=== PATIENT | female | born 1985 | race American Indian/Alaskan Native ===

== ENCOUNTER 2016-09-01 11:37 | Emergency (ER) | payer OTHER ==
[2016-09-01 11:41] VITALS: BMI 26.5
--- NOTE | 2016-09-01 11:57 | PDOC ---
History of Present Illness - General History Source: Patient Exam Limitations: No Limitations - History of Present Illness Presenting Symptoms: Short of Breath, Vomiting Timing/Duration: reports: constant Severity/Quality: reports: moderate Location: reports: substernal, shoulder, other (LUE) Chest Pain Radiation: reports: arms (L ARM only) Activities at Onset: reports: sleep Prior Chest Pain/Cardiac Workup: reports: No prior chest pain, No prior cardiac workup Nitro Today/Relief: Yes: no nitro taken today Aspirin Received prior to arrival (Core Measure): Yes: no aspirin today Beta Claudia Contraindications (Core Measure): Yes: Not Prescribed Associated Symptoms: Yes: Nausea, Shortness of Breath, Vomiting <Lexi Owen - Last Filed: 09/01/16 16:34> <Mendy Etienne - Last Filed: 09/01/16 17:52> - General Chief Complaint: Chest Pain Stated Complaint: DIFFICULTY BREATHING/PAIN IN LEFT ARM Time Seen by Provider: 09/01/16 11:51 - History of Present Illness Initial Comments: 09/01/16 14:45 Patient is a 30 y.o. female at 31 weeks gestation who presents to our facility today c/o a 1 day h/o substernal chest, shoulder and UE pain. Patient states the pain is intermittent, "stabbing" and exacerbated by deep breathing or laying down. Patient also c/o of associated intermittent shortness of breath exacerbated by activity and relieved by rest. ROS is significant for 3 episodes of yellowish, non-bilious, non-bloody vomiting this morning. Patient denies any current abdominal pain, rectal bleeding, dysuria, hematuria or fever. (Lexi Owen) Past History - Past Medical History Asthma: No Cancer: No Cardiac Disorders: No Diabetes: No HTN: No Seizures: No Thyroid Disease: No Other medical history: denies - Psycho/Social/Smoking Cessation Hx Suicidal Ideation: No Smoking History: Never smoked Information on smoking cessation initiated: No Hx Alcohol Use: No Drug/Substance Use Hx: No Substance Use Type: None Hx Substance Use Treatment: No <Lexi Owen - Last Filed: 09/01/16 16:34> <Mendy Etienne - Last Filed: 09/01/16 17:52> - Past Medical History Allergies/Adverse Reactions: Allergies Allergy/AdvReac Type Severity Reaction Status Date / Time No Known Allergies Allergy Verified 09/01/16 11:41 Home Medications: Ambulatory Orders Vit No.130/Iron/FA [ Tablet] 1 each PO DAILY 04/28/15 Review of Systems - Review of Systems Respiratory: Yes: Shortness of Breath, SOB with Exertion Cardiac (ROS): Yes: Chest Pain ABD/GI: Yes: Nausea, Vomiting Musculoskeletal: Yes: Muscle Pain All Other Systems: Reviewed and Negative <Lexi Owen - Last Filed: 09/01/16 16:34> *Physical Exam - Physical Exam General Appearance: Yes: Nourished, Appropriately Dressed HEENT: positive: EOMI, NIALL Neck: positive: Tender, Trachea midline Respiratory/Chest: positive: Lungs Clear, Normal Breath Sounds Cardiovascular: positive: Regular Rhythm, S1, S2, Tachycardia Gastrointestinal/Abdominal: positive: Normal Bowel Sounds, Soft Musculoskeletal: positive: Other (Limited ROM of L arm 2/2 to pain) <Lexi Owen - Last Filed: 09/01/16 16:34> - Vital Signs Last Vital Signs Temp Pulse Resp BP Pulse Ox 98.2 F 89 18 100/63 100 09/01/16 16:29 09/01/16 16:29 09/01/16 16:29 09/01/16 16:29 09/01/16 16:29 Procedures - Bedside Ultrasound Bedside Ultrasound: Cardiac Other: focused TTE, bilat lower ext /ro proximal DVT, and transabd OB. see att not <Mendy Etienne - Last Filed: 09/01/16 17:52> ED Treatment Course - LABORATORY CBC & Chemistry Diagram: 09/01/16 12:00 09/01/16 12:00 <Lexi Owen - Last Filed: 09/01/16 16:34> - LABORATORY CBC & Chemistry Diagram: 09/01/16 12:00 09/01/16 12:00 <Mendy Etienne - Last Filed: 09/01/16 17:52> - ADDITIONAL ORDERS Additional order review: Laboratory Results 09/01/16 09/01/16 12:00 12:00 Sodium 137 Potassium 3.6 Chloride 103 Carbon Dioxide 24 Anion Gap 10 BUN 4 L D Creatinine 0.4 L Creat Clearance w eGFR > 60 Random Glucose 97 Calcium 9.3 Total Bilirubin 0.3 AST 25 ALT 18 Alkaline Phosphatase 152 H Creatine Kinase 65 Troponin I < 0.02 Total Protein 6.6 Albumin 2.6 L 09/01/16 12:00 RBC 3.90 MCV 79.0 L MCHC 31.9 L RDW 14.3 MPV 9.0 Neutrophils % 81.0 Lymphocytes % 14.1 D Monocytes % 4.4 Eosinophils % 0.2 D Basophils % 0.3 - Medications Given in the ED: ED Medications Discontinued Medications Generic Name Dose Route Start Last Admin Trade Name Tavon PRN Reason Stop Dose Admin Ondansetron HCl 4 mg 09/01/16 12:30 09/01/16 13:10 Zofran Injection IVPUSH 09/01/16 12:31 4 mg ONCE ONE Administration Sodium Chloride 1,000 ml 09/01/16 12:28 09/01/16 13:10 Normal Saline - IV 09/01/16 12:29 1,000 ml ONCE ONE Administration Medical Decision Making <Lexi Owen - Last Filed: 09/01/16 16:34> <Mendy Etienne - Last Filed: 09/01/16 17:52> - Medical Decision Making 09/01/16 14:55 Patient is a 30 y.o. female @ 31 weeks gestation who presents with 1 day h/ o chest pain, LUE pain and shortness of breath. Given patient's , immediate concern was for pulmonary embolism. Beside U/S of LUE showed compressibility of femoral and popliteal veins making DVT less likely. As patient continued to c/o c/o of dyspnea (SpO2 > 94% on RA) and EKG showed sinus tachycardia (HR 188 bpm) patient was counseled on risks and benefits of radiation exposure and patient consented for chest CTA. Patient's PCP, Dr. Yesenia Escoto was contacted, and Dr. Escoto's partner agreed with CTA. CTA was negative for PE and bedside U/S of chest showed no pericardial effusion making cardiomyopathy secondary to less likely. Troponin was (-) x1. During the course of admission patient's c/o dyspnea and R chest/ shoulder/UE pain resolved. Patient was discharged to L&D with instruction to return if she experienced chest pain or shortness of breath. (Lexi Owen) *DC/Admit/Observation/Transfer <Lexi Owen - Last Filed: 09/01/16 16:34> <Mendy Etienne - Last Filed: 09/01/16 17:52> Diagnosis at time of Disposition: Chest pain - Discharge Dispostion Disposition: HOME Condition at time of disposition: Improved - Patient Instructions Printed Discharge Instructions: DI for Atypical Chest Pain, DI for Shortness of Breath, DI for Chest Pain Additional Instructions: Please return to the ED should you experience shortness of breath or severe chest pain Print Language: LUX[place]
[2016-09-01 12:09] LABS: BASOPHIL 0.3 % (0-2.0); EOSINOPHIL 0.2 % (0-4.5); MCH 25.2 pg (25.7-33.7); MCHC 31.9 g/dl (32.0-36.0); PLATELET COUNT 171 K/MM3 (134-434); RDW 14.3 % (11.6-15.6); WHITE BLOOD COUNT 13.4 K/mm3 (4.0-10.0)
[2016-09-01] MEDS ORDERED: SODIUM CHLORIDE 0.9% 1000 ML INFUS.BAG IV ONE (12:28)
[2016-09-01] MEDS ORDERED: ONDANSETRON 4 MG/2 ML VIAL IVPUSH ONE (12:30)
[2016-09-01 12:38] LABS: ALBUMIN 2.6 g/dl (3.4-5.0); ALK PHOS 152 U/L (45-117); ANION GAP 10 (8-16); BILIRUBIN,TOTAL 0.3 mg/dL (0.2-1.0); CALCIUM 9.3 mg/dL (8.5-10.1); CO2 24 mmol/L (21-32); CREATININE 0.4 mg/dL (0.55-1.02); GLUCOSE,RANDOM 97 mg/dL (74-106); SGOT/AST 25 U/L (15-37); SGPT/ALT 18 U/L (12-78); TOT PROT 6.6 g/dl (6.4-8.2)
[2016-09-01 12:40] LABS: TROPONIN I < 0.02 ng/ml (0.00-0.05)
[2016-09-01] MEDS ORDERED: ONDANSETRON 4 MG/2 ML VIAL ONE (13:06)
--- NOTE | 2016-09-01 17:44 | PDOC ---
Attending Attestation - Resident Resident Name: Ivis Owenica - ED Attending Attestation I have performed the following: I have examined & evaluated the patient, The case was reviewed & discussed with the resident, I agree w/resident's findings & plan, Exceptions are as noted - HPI HPI: 09/01/16 17:36 30 yo F ( 2 miscarriages ) with h/o 31 weeks , here with c/o chest pain radiating to her arm. did feel was plueritic. also had n/v x 2 yesterday and this am. nonbloody. no h/o pe or dvt. no leg swelling . no recent travel. does feel sob. no f/c no cough. no other complaints. no loss of fluid or urinary symptoms. sob worse with lying flat. - Physicial Exam PE: 09/01/16 17:39 awake alert lungs clear. heart RRR no m/r/g. abd soft gravid nontender. ext wwp no edema no calf tenderness. 09/01/16 17:45 - Medical Decision Making 09/01/16 17:45 30 yo F with 31 week here with c/o sob and chest pain. differential: diagnosis cardiomyopathy, anemia, dehydration, pe, chf, pain of , plan bedside TTE, bilat dopplers lower extremity r/o dvt. evaluate ob ultrasound for well being. labs, ua , reassess. will d/w pt ob and pt regarding need for CT r/o pe bedside US TTE performed, indication sob suspect Pe: findings: no pericardial effusion. good contractility. no signs of RV strain or dilation. impression: normal TTE Focused ED ultrasound bilat lower extremities r/o DVT: finding: complete compression at common femoral down to superifical and deep femoral veins, no clot visualization. patent veins and complete compression from popliteal to anterior, posterior tibial veins and peroneal veins. normal augmentation impression : no proximal DVT of bilat lower ext, recommend repeat in 5 - 7 days. focused ED ultrasound transabdominal OB, FHR 164 bpm, movment noted. 09/01/16 17:51 ct angio negative for PE. pt sent to L &D for monitoring.
[2016-09-01 18:09] VITALS: BP 105/65; PULSE 93; TEMP 98
--- NOTE | 2016-09-04 13:59 | EKG ---
Test Reason : Blood Pressure : / mmHG Vent. Rate : 118 BPM Atrial Rate : 118 BPM P-R Int : 120 ms QRS Dur : 086 ms QT Int : 324 ms P-R-T Axes : 059 056 034 degrees QTc Int : 454 ms SINUS TACHYCARDIA OTHERWISE NORMAL ECG NO PREVIOUS ECGS AVAILABLE Confirmed by WAYNE PRESCOTT MD ([id number]) on 09/04/2016 1:58:31 PM Referred By: Confirmed By:WAYNE PRESCOTT MD
== END 2016-09-01 18:40 | disposition home or self-care (01) ==
LOC: JER 11:37
PROC: 3E033GC Introduction of Other Therapeutic Substance into Peripheral Vein, Percutaneous Approach (ICD-10-PCS; principal; 2016-09-01)
DX: O99.89 Other specified diseases and conditions complicating pregnancy, childbirth and the puerperium (principal); R07.89 Other chest pain; Z3A.31 31 weeks gestation of pregnancy
CPT/HCPCS: 36415; 71275-TC; 80053; 82550; 84484; 85025; 93005; 93010; 96374; 99285-25

== ENCOUNTER 2016-11-05 10:10 | Inpatient (IN) | payer OTHER ==
[~2016-11-05 10:10] MED LIST: BUTORPHANOL TARTRATE 1 MG/ML VIAL IVPB ONE; PROMETHAZINE HCL 25 MG/1 ML VIAL IVPB ONE
[2016-11-05 10:46] VITALS: BMI 28.5
[2016-11-05] MEDS ORDERED: TUBERCULIN PPD 5 TU/0.1ML SYRINGE (IN PATIENT USE ONLY) ID ONE (11:00)
[2016-11-05] MEDS ORDERED: BENZOCAINE 20% 57 GM BOTTLE TP PRN (11:27)
[2016-11-05] MEDS ORDERED: WITCH HAZEL 50% (TUCKS) 40 PAD/JAR PAD TP PRN (11:27)
[2016-11-05] MEDS ORDERED: METHYLERGONOVINE MALEATE 0.2 MG/1 ML AMP IM PRN (11:27)
[2016-11-05] MEDS ORDERED: BISACODYL 10 MG SUPP.RECT RC PRN (11:27)
[2016-11-05] MEDS ORDERED: BENZOCAINE 28 GM HEMORRHOIDAL OINTMENT TP PRN (11:27)
--- NOTE | 2016-11-05 11:27 | HP ---
Past Medical History - Primary Care Physician PCP:: Yesenia Ahumada - Admission Chief Complaint: SROm at 41 week History of Present Illness: 31 yo edc 10/29/16 ega 41 week admitted for srom in labor History Source: Patient - Past Medical History ...: 4 ...Para: 3 ...Term: 3 ...EDC by Janie: 10/29/16 - Past Surgical History Past Surgical History: Yes: None Hx Myomectomy: No Hx Transabdominal Cerclage: No - Smoking History Smoking history: Never smoked Have you smoked in the past 12 months: No - Alcohol/Substance Use Hx Alcohol Use: No History of Substance Use: reports: None - Social History Usual Living Arrangement: Yes: With Spouse History of Recent Travel: No Home Medications - Allergies Allergies/Adverse Reactions: Allergies Allergy/AdvReac Type Severity Reaction Status Date / Time No Known Allergies Allergy Verified 11/05/16 10:33 - Home Medications Home Medications: Ambulatory Orders RX: Vit No.130/Iron/FA [ Tablet] 1 each PO DAILY 04/28/15 Ferrous Sulfate [Feosol] 325 mg PO BID 11/05/16 Review of Systems - Review of Systems Constitutional: reports: No Symptoms Eyes: reports: No Symptoms HENT: reports: No Symptoms Neck: reports: No Symptoms Cardiovascular: reports: No Symptoms Respiratory: reports: No Symptoms Gastrointestinal: reports: Abdominal Pain Genitourinary: reports: No Symptoms Breasts: reports: No Symptoms Reported Musculoskeletal: reports: No Symptoms Integumentary: reports: No Symptoms Neurological: reports: No Symptoms Endocrine: reports: No Symptoms Hematology/Lymphatic: reports: No Symptoms Psychiatric: reports: No Symptoms Physical Exam - Maternity Vital Signs: Vital Signs Temperature 98.2 F 11/05/16 10:15 Pulse Rate 108 H 11/05/16 10:15 Respiratory Rate 20 11/05/16 10:15 Blood Pressure 122/79 11/05/16 10:15 O2 Sat by Pulse Oximetry (%) Constitutional: Yes: Well Nourished, No Distress Neck: Yes: WNL Cardiovascular: Yes: WNL Lungs: Clear to auscultation - Abdominal Exam/OB Number of Fetuses: Single Presentation: Vertex Contractions: No Monitor Mode: External Heart Rate Location: [facility] Category: I - Vaginal Exam/OB Dilatation (cm): 7 Effacement (%): 80 Amniotic Membrane Status: Ruptured Presentation: Vertex/Position Station: -1 - Physical Exam Musculoskeletal: Yes: WNL Extremities: Yes: WNL Edema: No Integumentary: Yes: WNL Hemorrhage Risk Assessment - Risk Factors Risk Score: 0 Risk Level: Low Risk Problem List - Problems (1) Spontaneous rupture of amniotic membranes Code(s): [id number] - Assessment/Plan iup at 41 weeks srom active labor Cat 1 Plan stadol
[2016-11-05] MEDS ORDERED: DEXTROSE 5%-LACTATED RINGERS 1,000 ML IV SCH (11:30)
[2016-11-05 11:44] LABS: BASOPHIL 0.3 % (0-2.0); EOSINOPHIL 0.2 % (0-4.5); MCHC 30.8 g/dl (32.0-36.0); MEAN PLT VOLUME 8.9 fl (7.5-11.1); NEUTROPHILS 84.6 % (42.8-82.8); PLATELET COUNT 176 K/MM3 (134-434); RDW 16.9 % (11.6-15.6); WHITE BLOOD COUNT 16.4 K/mm3 (4.0-10.0)
[2016-11-05 12:13] LABS: ANION GAP 12 (8-16); CALCIUM 8.5 mg/dL (8.5-10.1); CO2 21 mmol/L (21-32); CREATININE 0.5 mg/dL (0.55-1.02); GLUCOSE,RANDOM 109 mg/dL (74-106)
[2016-11-05 12:20] LABS: HIV 1 & 2 AB NEGATIVE; HIV 1 AGp24 NEGATIVE
[2016-11-05 12:22] LABS: INR 1.01 (0.82-1.09); PROTHROMBIN TIME (PATIENT) 11.1 SEC (9.98-11.88)
[2016-11-05 12:24] LABS: ACTIVATED PTT 26.7 SECONDS (26.9-34.4)
[2016-11-05] MEDS: D5W-LR W/ 20 UNITS OXYTOCIN 1,000 ML IV SCH (13:15)
[2016-11-05 14:17] LABS: ANISOCYTOSIS 2+; MACROCYTOSIS 1+; MICROCYTOSIS 1+
[2016-11-05] MEDS: IBUPROFEN 600 MG TABLET (FP) PO PRN ×2 (14:37→21:24)
[2016-11-05] MEDS: ACETAMINOPHEN 325 MG TABLET (FP) PO PRN (21:25)
--- NOTE | 2016-11-06 00:17 | PN ---
Delivery - Delivery Vaginal Delivery: No Problems Type of Anesthesia: None Episiotomy/Laceration: None EBL (cc): 400 (Nuchal COrd X2) Delivery, Single - Stages of Labor Date 1st Stage Initiatied: 11/05/16 Time 1st Stage Initiated: 09:00 Date 2nd Stage Initiated: 11/05/16 Time 2nd Stage Initiated: 12:45 Date of Delivery: 11/05/16 Time of Delivery: 13:12 Time Placenta Delivered: 13:15 - Condition of Brine Tank Separator Operator/Hatch Supervisor Present: No Infant Gender: Female Weight: 6 lb 10 oz Position: Right, OA Total Hours ROM (Hrs/Mins): 9/15 - 1 Minute Total Score: 9 5 Minutes Total Score: 9 - [place] Feeding Plan Initial Plan: Exclusive throughout hospitalization
--- NOTE | 2016-11-06 00:23 | DS ---
Physical Exam-PROFESSOR OF ENGLISH Vital Signs: Vital Signs Temperature 98.9 F 11/05/16 22:00 Pulse Rate 105 H 11/05/16 22:00 Respiratory Rate 18 11/05/16 22:00 Blood Pressure 118/64 11/05/16 22:00 O2 Sat by Pulse Oximetry (%) 99 11/05/16 14:45 Constitutional: Yes: Well Nourished, No Distress Cardiovascular: Yes: WNL, Regular Rate and Rhythm Respiratory: Yes: WNL, Regular, CTA Bilaterally Gastrointestinal: Yes: WNL, Normal Bowel Sounds ....Post : Yes: Uterus firm, Uterus non-tender Breast(s): Yes: WNL Musculoskeletal: Yes: WNL Extremities: Yes: WNL Neurological: Yes: WNL, Alert, Oriented Labs: CBC, BMP 11/05/16 11:25 11/05/16 11:25 Delivery - Delivery Vaginal Delivery: No Problems Type of Anesthesia: None Episiotomy/Laceration: None EBL (cc): 400 (Nuchal COrd X2) Delivery, Single - Stages of Labor Date 1st Stage Initiatied: 11/05/16 Time 1st Stage Initiated: 09:00 Date 2nd Stage Initiated: 11/05/16 Time 2nd Stage Initiated: 12:45 Date of Delivery: 11/05/16 Time of Delivery: 13:12 Time Placenta Delivered: 13:15 - Condition of Wind Operations Supervisor/Account Clerk Present: No Infant Gender: Female Weight: 6 lb 10 oz Position: Right, OA Total Hours ROM (Hrs/Mins): 9/15 - 1 Minute Total Score: 9 5 Minutes Total Score: 9 - Feeding Plan Initial Plan: Exclusive throughout hospitalization Discharge Summary Reason For Visit: LABOR Procedures: Principal: Normal vaginal delivery Condition: Good - Instructions Referrals: Yesenia Ahumada MD [Staff Physician] - Disposition: HOME - Home Medications Comprehensive Discharge Medication List: Ambulatory Orders Vit No.130/Iron/FA [ Tablet] 1 each PO DAILY 04/28/15 Ferrous Sulfate [Feosol] 325 mg PO BID 11/05/16 Ibuprofen [Motrin -] 600 mg PO QID PRN #28 tablet 11/06/16
--- NOTE | 2016-11-06 08:09 | PN ---
Post Note - Post Date of Delivery: 11/05/16 Vital Signs: Vital Signs - 24 hr 11/05/16 11/05/16 11/05/16 10:15 11:00 12:00 Temperature 98.2 F Pulse Rate 108 H 103 H 86 Respiratory 20 18 18 Rate Blood Pressure 122/79 119/75 122/75 O2 Sat by Pulse Oximetry (%) 11/05/16 11/05/16 11/05/16 13:45 14:00 14:15 Temperature 98.0 F Pulse Rate 92 H 86 84 Respiratory 18 18 18 Rate Blood Pressure 129/78 130/77 134/77 O2 Sat by Pulse 99 99 98 Oximetry (%) 11/05/16 11/05/16 11/05/16 14:30 14:45 15:08 Temperature 97.6 F Pulse Rate 88 Respiratory 18 Rate Blood Pressure 125/71 O2 Sat by Pulse 97 99 Oximetry (%) 11/05/16 11/05/16 11/06/16 17:57 22:00 02:00 Temperature 97.6 F 98.9 F 97.8 F Pulse Rate 110 H 105 H 90 Respiratory 18 18 18 Rate Blood Pressure 119/68 118/64 99/53 O2 Sat by Pulse Oximetry (%) 11/06/16 06:00 Temperature 98.1 F Pulse Rate 87 Respiratory 20 Rate Blood Pressure 119/62 O2 Sat by Pulse Oximetry (%) Labs: Laboratory Results - last 24 hr 11/05/16 11/05/16 11/05/16 11:20 11:20 11:25 WBC 16.4 H RBC 4.22 Hgb 8.8 L D Hct 28.7 L MCV 68.0 L MCH 21.0 L MCHC 30.8 L RDW 16.9 H D Plt Count 176 MPV 8.9 Neutrophils % 84.6 H Lymphocytes % 10.3 D Monocytes % 4.6 Eosinophils % 0.2 Basophils % 0.3 Anisocytosis 2+ Microcytosis 1+ Macrocytosis 1+ INR PTT (Actin FS) Sodium Potassium Chloride Carbon Dioxide Anion Gap BUN Creatinine Random Glucose Calcium RPR Titer HIV 1&2 Antibody Screen HIV P24 Antigen Blood Type O POSITIVE Cancelled Antibody Screen Negative 11/05/16 11/05/16 11/05/16 11:25 11:25 11:25 WBC RBC Hgb Hct MCV MCH MCHC RDW Plt Count MPV Neutrophils % Lymphocytes % Monocytes % Eosinophils % Basophils % Anisocytosis Microcytosis Macrocytosis INR 1.01 PTT (Actin FS) 26.7 L Sodium 136 Potassium 3.3 L Chloride 103 Carbon Dioxide 21 Anion Gap 12 BUN 8 D Creatinine 0.5 L D Random Glucose 109 H Calcium 8.5 RPR Titer Nonreactive HIV 1&2 Antibody Screen HIV P24 Antigen Blood Type Antibody Screen 11/05/16 11:25 WBC RBC Hgb Hct MCV MCH MCHC RDW Plt Count MPV Neutrophils % Lymphocytes % Monocytes % Eosinophils % Basophils % Anisocytosis Microcytosis Macrocytosis INR PTT (Actin FS) Sodium Potassium Chloride Carbon Dioxide Anion Gap BUN Creatinine Random Glucose Calcium RPR Titer HIV 1&2 Antibody Screen Negative HIV P24 Antigen Negative Blood Type Antibody Screen - Subjective Subjective: No Complaints - Objective Afebrile: Yes Breast: Not engorged Abdomen: Soft, Non-tender Uterus: Fundus firm, Non-tender Vagina: Scant lochia Extremities: Non-tender - Assessment/Plan (1) Spontaneous rupture of amniotic membranes Assessment: S/P Normal Plan: Routine Care
[2016-11-06 09:00] LABS: BASOPHIL 0.2 % (0-2.0); EOSINOPHIL 0.8 % (0-4.5); MCH 21.4 pg (25.7-33.7); MCHC 31.4 g/dl (32.0-36.0); MEAN CELL VOLUME 68.3 fl (80-96); MEAN PLT VOLUME 8.9 fl (7.5-11.1); NEUTROPHILS 74.3 % (42.8-82.8); PLATELET COUNT 177 K/MM3 (134-434); RDW 16.5 % (11.6-15.6); WHITE BLOOD COUNT 14.1 K/mm3 (4.0-10.0)
[2016-11-06] MEDS ORDERED: DIPHTH,PERTUSS(ACELL),TET 0.5 ML DISP.SYRIN IM ONE (10:00)
[2016-11-06] MEDS: PRENATAL VITAMINS W/ FOLIC ACID TABLET (FP) PO SCH (10:05)
[2016-11-06 17:02] LABS: BASOPHIL 0.1 % (0-2.0); EOSINOPHIL 0.7 % (0-4.5); MCH 21.2 pg (25.7-33.7); MEAN CELL VOLUME 68.6 fl (80-96); MEAN PLT VOLUME 9.5 fl (7.5-11.1); NEUTROPHILS 65.9 % (42.8-82.8); PLATELET COUNT 208 K/MM3 (134-434); RDW 16.7 % (11.6-15.6); WHITE BLOOD COUNT 14.1 K/mm3 (4.0-10.0)
[2016-11-06 18:06] LABS: PLATELET ESTIMATE ADEQUATE (NORMAL)
[2016-11-06 18:07] LABS: HYPOCHROMIA 2+; MICROCYTOSIS 2+
[2016-11-06] MEDS: FERROUS SO4 325 MG TABLET (FP) PO SCH (18:29)
[2016-11-06] MEDS: ACETAMINOPHEN 325 MG TABLET (FP) PO PRN (18:32)
[2016-11-06] MEDS: IBUPROFEN 600 MG TABLET (FP) PO PRN (18:33)
[2016-11-06] MEDS: D5W-LR W/ 20 UNITS OXYTOCIN 1,000 ML IV SCH (20:19)
[2016-11-06] MEDS ORDERED: SENNOSIDES/DOCUSATE COMBO (SENNA PLUS) TABLET (UD) PO PRN (22:00)
[2016-11-07] MEDS: ACETAMINOPHEN 325 MG TABLET (FP) PO PRN (04:06)
[2016-11-07] MEDS: IBUPROFEN 600 MG TABLET (FP) PO PRN (04:07)
[2016-11-07] MEDS: FERROUS SO4 325 MG TABLET (FP) PO SCH ×2 (07:33→11:40)
[2016-11-07 08:36] LABS: MCH 21.5 pg (25.7-33.7); MCHC 30.9 g/dl (32.0-36.0); MEAN CELL VOLUME 69.5 fl (80-96); MEAN PLT VOLUME 8.9 fl (7.5-11.1); PLATELET COUNT 184 K/MM3 (134-434); RDW 16.9 % (11.6-15.6); WHITE BLOOD COUNT 14.1 K/mm3 (4.0-10.0)
[2016-11-07 09:01] VITALS: BP 98/61; PULSE 89; TEMP 98.3
[2016-11-07 10:02] LABS: MYELOCYTE 2 % (0-2); TOTAL CELLS COUNTED 100
[2016-11-07] MEDS: PRENATAL VITAMINS W/ FOLIC ACID TABLET (FP) PO SCH (10:36)
== END 2016-11-07 12:15 | disposition home or self-care (01) | DRG 560 ==
LOC: JLDR 10:10 → J3W 14:54
PROVIDERS: ADMIT Obstetrics & Gynecology; ATTEND Obstetrics & Gynecology
PROC: 10E0XZZ Delivery of Products of Conception, External Approach (ICD-10-PCS; principal; 2016-11-05)
DX: O48.0 Post-term pregnancy (principal); Z3A.41 41 weeks gestation of pregnancy; Z37.0 Single live birth
CPT/HCPCS: 36415; 59409; 80048; 85025; 85610; 85730; 86593; 86850; 86900; 86901; 87389; 90715

== ENCOUNTER 2018-01-21 05:16 | Day surgery (SDC) | payer OTHER ==
[2018-01-15 13:06] VITALS: BMI 26.5
[2018-01-15 17:22] LABS: BASO % 0.3 % (0-2.0); EOS % 1.5 % (0-4.5); HEMATOCRIT 39.5 % (32.4-45.2); HEMOGLOBIN 13.4 GM/dL (10.7-15.3); LYMPH % 33.6 % (8-40); MCH 28.4 pg (25.7-33.7); MCHC 33.9 g/dl (32.0-36.0); MEAN CELL VOLUME 83.7 fl (80-96); MONO % 7.3 % (3.8-10.2); NEUT % 57.3 % (42.8-82.8); RBC 4.71 M/mm3 (3.60-5.2); RDW 14.5 % (11.6-15.6); WHITE BLOOD COUNT 9.6 K/mm3 (4.0-10.0)
[2018-01-15 18:04] LABS: ALK PHOS 136 U/L (45-117); ANION GAP 11 MMOL/L (8-16); BILIRUBIN,TOTAL 0.2 mg/dL (0.2-1); BLOOD UREA NITROGEN 15 mg/dL (7-18); CALCIUM 9.3 mg/dL (8.5-10.1); CHLORIDE 104 mmol/L (98-107); CO2 25 mmol/L (21-32); CREATININE 0.6 mg/dL (0.55-1.3); GLUCOSE,RANDOM 74 mg/dL (74-106); POTASSIUM 4.4 mmol/L (3.5-5.1); SGOT/AST 45 U/L (15-37); SGPT/ALT 51 U/L (13-61); SODIUM 139 mmol/L (136-145); TOT PROT 7.9 g/dl (6.4-8.2)
[2018-01-15 18:32] LABS: MEAN PLT VOLUME 10.8 fl (7.5-11.1); PLATELET COUNT 213 K/MM3 (134-434)
[2018-01-15 18:33] LABS: PLATELET ESTIMATE ADEQUATE
[2018-01-21] MEDS ORDERED: ACETAMINOPHEN 325 MG TABLET (FP) PO PRN (14:52)
[2018-01-21] MEDS ORDERED: IBUPROFEN 800 MG/8 ML IJ IVPB PRN (14:52)
--- NOTE | 2018-01-21 14:52 | HP ---
History & Physical Update - History History: No Change - Physical Physical: No Change - Assessment Assessment: No Change - Plan Plan: No Change (No change from H&P for hysteroscopic polypectomy/myomectomy.)
[2018-01-21] MEDS ORDERED: MIDAZOLAM HCL 2 MG/2 ML SINGLE DOSE VIAL ONE ×2 (15:05)
[2018-01-21] MEDS ORDERED: DEXAMETHASONE SOD PHOSPHATE 4 MG/1 ML VIAL ONE (15:10)
[2018-01-21] MEDS ORDERED: PROPOFOL 20 ML ONE (15:10)
[2018-01-21] MEDS ORDERED: LACTATED RINGERS SOLUTION 1,000 ML IV SCH ×2 (15:45→16:15)
--- NOTE | 2018-01-21 16:10 | OP ---
Operative Note - Note: Operative Date: 01/21/18 Pre-Operative Diagnosis: AUB, endometrial polyp Operation: hysteroscopic myomectomy/polypectomy, suction D&C Findings: small endometrial polyp Post-Operative Diagnosis: Same as Pre-op Surgeon: Sarah Dumont Anesthesiologist/BARBER SHOP MANAGER: Armando Crocker Anesthesia: General (with LMA) Specimens Removed: endometrial curettings, endometrial polyp Estimated Blood Loss (mls): 10 (140cc fluid defecit) Operative Report Dictated: Yes
[2018-01-21] MEDS ORDERED: oxyCODONE HCL 5 MG TABLET PO PRN (16:15)
[2018-01-21] MEDS ORDERED: ONDANSETRON 4 MG/2 ML VIAL IVPUSH PRN (16:15)
[2018-01-21] MEDS ORDERED: PROMETHAZINE HCL 25 MG/1 ML VIAL IVPB PRN (16:15)
[2018-01-21 18:03] VITALS: TEMP 98
[2018-01-21 20:08] VITALS: BP 117/63; PULSE 79
--- NOTE | 2018-01-21 20:24 | OP ---
DATE OF OPERATION: 01/21/2018 PREOPERATIVE DIAGNOSES: Abnormal uterine bleeding and endometrial polyp. POSTOPERATIVE DIAGNOSES: Abnormal uterine bleeding and endometrial polyp. PROCEDURE: Hysteroscopic polypectomy, suction dilatation and curettage. SURGEON: Sarah Dumont DO ANESTHESIA: LMA by Armando Crocker MD. DEER FARMER: None. FINDINGS: Included endometrial polyps. COMPLICATIONS: None. COUNT: Sponge and instrument count correct. DISPOSITION: Stable to PACU. ESTIMATED BLOOD LOSS: 10 mL FLUID DEFICIT: 140 mL of normal saline. BRIEF HISTORY AND PROCEDURE: Patient is a 32-year-old female who had been seen in the office with complaints of long, heavy periods, and on saline-infusion sonogram, was found to have an endometrial polyp. The patient was counseled on her options and elected to undergo resection. Patient was admitted to [facility] on January 21, 2018. Consents were signed in the office and were reconfirmed upon admission. She was then taken back to the operating room, given anesthesia with LMA by Dr. Armando Crocker, and placed in the dorsal lithotomy position. A speculum was placed inside the vagina and the anterior lip of the cervix was grasped with a single-tooth tenaculum and the cervix was dilated to accommodate an operative hysteroscope which was advanced to the fundus. A small anterior endometrial polyp was noted which was resected with the resectoscope at this time in several passes. Then, the hysteroscope was removed from the vagina, and a suction D&C was then performed. All instruments were then removed from the vagina. Tenaculum was removed from the anterior lip of the cervix. Minimal bleeding was noted at the tenaculum site, which was stopped with a brief application of a ring forcep. All instruments were removed from the vagina. Sponge and instrument count was reported to be correct. The patient tolerated the procedure well, is recovering in stable condition in the PACU after the procedure. SARAH DUMONT DO /[id number]
--- NOTE | 2018-01-23 16:44 | PATH ---
Surgical Pathology Report Patient Name: ABDIRASHID GRAHAM [place]. Rec. #: [id number] /Age/Gender: 1985 (Age: 32) / F Account: [id number] Location: [facility] SURGICAL Taken: 01/21/2018 Received: 01/22/2018 Reported: 01/23/2018 Physicians: Sarah Dumont M.D. Specimen(s) Received ENDOMETRIUM POLYP Clinical History Endometrial polyp Final Diagnosis ENDOMETRIAL POLYP, HYSTEROSCOPIC POLYPECTOMY: ENDOMETRIAL POLYP, PROLIFERATIVE ENDOMETRIUM, SCANT SUPERFICIAL MYOMETRIUM, AND BENIGN ECTOCERVICAL SQUAMOUS MUCOSA. Electronically Signed Milli De Santiago M.D. Gross Description Received in formalin labeled "endometrial polyp," is a 1.4 x 1.2 x 0.2 cm aggregate of epstein soft tissue fragments. The formalin is filtered and the specimen is entirely submitted in one cassette. /01/22/2018 saudi/01/22/2018
== END 2018-01-21 18:55 | disposition home or self-care (01) ==
LOC: JASU-SURG 05:16
PROVIDERS: ATTEND Obstetrics & Gynecology
PROC: 0UDB7ZX Extraction of Endometrium, Via Natural or Artificial Opening, Diagnostic (ICD-10-PCS; 2018-01-21)
PROC: 0UJD8ZZ Inspection of Uterus and Cervix, Via Natural or Artificial Opening Endoscopic (ICD-10-PCS; 2018-01-21)
PROC: 0UB97ZX Excision of Uterus, Via Natural or Artificial Opening, Diagnostic (ICD-10-PCS; principal; 2018-01-21 15:00)
DX: N93.9 Abnormal uterine and vaginal bleeding, unspecified (principal); N84.0 Polyp of corpus uteri
CPT/HCPCS: 36415; 80053; 84702; 84703; 85025; 88305-TC; 94760

== ENCOUNTER 2019-01-12 08:45 | Inpatient (IN) | payer OTHER ==
[2019-01-12] MEDS ORDERED: DEXTROSE 5%-LACTATED RINGERS 1,000 ML IV SCH ×2 (09:00→16:30)
[2019-01-12 09:52] VITALS: BMI 28.9
[2019-01-12] MEDS ORDERED: AMPICILLIN SODIUM 2 GM VIAL ONE (09:56)
[2019-01-12] MEDS ORDERED: AMPICILLIN - 2 GM in SODIUM CHLORIDE 100 ML IVPB ONE (10:00)
[2019-01-12 10:08] LABS: BASO % 0.3 % (0-2.0); EOS % 0.4 % (0-4.5); HEMATOCRIT 35.6 % (32.4-45.2); LYMPH % 20.7 % (8-40); MCH 29.5 pg (25.7-33.7); MCHC 33.7 g/dl (32.0-36.0); MEAN CELL VOLUME 87.5 fl (80-96); MEAN PLT VOLUME 9.5 fl (7.5-11.1); MONO % 7.2 % (3.8-10.2); NEUT % 71.4 % (42.8-82.8); PLATELET COUNT 160 K/MM3 (134-434); RBC 4.07 M/mm3 (3.60-5.2); RDW 15.7 % (11.6-15.6); WHITE BLOOD COUNT 10.4 K/mm3 (4.0-10.0)
[2019-01-12 10:23] LABS: ACTIVATED PTT 28.9 SECONDS (25.2-36.5)
[2019-01-12 10:31] LABS: BLOOD UREA NITROGEN 6.6 mg/dL (7-18); CALCIUM 9.2 mg/dL (8.5-10.1); CREATININE 0.4 mg/dL (0.55-1.3); POTASSIUM 3.8 mmol/L (3.5-5.1)
[2019-01-12 11:04] LABS: RPR NONREACTIVE (NONREACTIVE)
[2019-01-12 11:08] LABS: INR 0.97 (0.83-1.09); PROTHROMBIN TIME (PATIENT) 11.5 SEC (9.7-13.0)
[2019-01-12] MEDS ORDERED: AMPICILLIN SODIUM 1 GM VIAL ONE ×2 (14:00→17:59)
[2019-01-12] MEDS: AMPICILLIN - 1 GM in SODIUM CHLORIDE 100 ML IVPB SCH ×2 (14:02→18:00)
--- NOTE | 2019-01-12 16:31 | HP ---
Past Medical History - Admission Chief Complaint: Spontaneous rupture of membrane History of Present Illness: 33 yo @ 39 weeks gestation, EDC 01/19/19, admitted for spontaneous rupture of membrane. She admits to leakage of fluid since 5pm the day prior; upon admission she was 3cm dilated with gross pooling. History Source: Patient Limitations to Obtaining History: No Limitations - Past Medical History ...: 5 ...Para: 4 ...Term: 4 ...: 0 ...Spon : 0 ...Induced : 0 ...Multiple Gestation: 0 ...LMP: 04/14/18 ... Weeks Gestation by Dates: 39.0 ...EDC by Dates: 01/19/19 ...EDC by Sono: 01/19/19 - Past Surgical History Past Surgical History: Yes: None Hx Myomectomy: No Hx Transabdominal Cerclage: No - Smoking History Smoking history: Never smoked Have you smoked in the past 12 months: No - Alcohol/Substance Use Hx Alcohol Use: No History of Substance Use: reports: None - Social History History of Recent Travel: No Home Medications - Allergies Allergies/Adverse Reactions: Allergies Allergy/AdvReac Type Severity Reaction Status Date / Time No Known Allergies Allergy Verified 01/12/19 09:17 - Home Medications Home Medications: Ambulatory Orders Pnv No.95/Ferrous Fum/Folic AC [ Formula] 1 each PO DAILY 01/12/19 Family Medical History Family History: Unremarkable Review of Systems - Review of Systems Constitutional: reports: No Symptoms Eyes: reports: No Symptoms HENT: reports: No Symptoms Neck: reports: No Symptoms Cardiovascular: reports: No Symptoms Respiratory: reports: No Symptoms Gastrointestinal: reports: No Symptoms Genitourinary: reports: Other (Leakage of fluid) Breasts: reports: No Symptoms Reported Musculoskeletal: reports: No Symptoms Integumentary: reports: No Symptoms Neurological: reports: No Symptoms Endocrine: reports: No Symptoms Hematology/Lymphatic: reports: No Symptoms Psychiatric: reports: No Symptoms Pain Intensity: 2 Physical Exam - Maternity Vital Signs: Vital Signs Temperature 98.2 F 01/12/19 16:00 Pulse Rate 112 H 01/12/19 16:00 Respiratory Rate 18 01/12/19 16:00 Blood Pressure 97/55 L 01/12/19 16:00 O2 Sat by Pulse Oximetry (%) Constitutional: Yes: No Distress Eyes: Yes: Conjunctiva Clear HENT: Yes: Atraumatic Neck: Yes: Supple Cardiovascular: Yes: Regular Rate and Rhythm Lungs: Clear to auscultation Breast(s): Yes: WNL - Abdominal Exam/OB Number of Fetuses: Single Presentation: Vertex - Vaginal Exam/OB Vaginal Bleediing: No Dilatation (cm): 3 Effacement (%): 70 Amniotic Membrane Status: Ruptured Nitrazine Test: Positive Amniotic Fluid: Yes: Clear Presentation: Vertex/Position Station: -2 - Physical Exam Musculoskeletal: Yes: WNL Extremities: Yes: WNL ...Motor Strength: WNL Psychiatric: Yes: Alert, Oriented - Labs Lab Results: CBC, BMP 01/12/19 09:57 01/12/19 09:19 Problem List - Problems (1) 39 weeks gestation of Problems reviewed: Yes Code(s): Z3A.39 - 39 WEEKS GESTATION OF (2) Spontaneous rupture of amniotic membranes Problems reviewed: Yes Code(s): [id number] - Assessment/Plan 39 weeks gestation Spontaneous rupture of membrane Admit to L&D Analgesia as needed GBS prophylaxis Pitocin augmentation Anticipate
[2019-01-12] MEDS ORDERED: OXYTOCIN 30 UNITS in 0.9% NS 30 UNIT/500 ML INFUS.BAG IVPB ONE (16:37)
[2019-01-12] MEDS ORDERED: BUTORPHANOL TARTRATE 2 MG/ML VIAL IVPUSH PRN (16:39)
[2019-01-12] MEDS ORDERED: PROMETHAZINE HCL 25 MG/1 ML VIAL IVPUSH ONE (16:40)
[2019-01-12] MEDS ORDERED: OXYTOCIN 30 UNITS in 0.9% NS 30 UNIT/500 ML INFUS.BAG IVPB SCH (16:45)
[2019-01-12] MEDS ORDERED: BUTORPHANOL TARTRATE 1 MG/ML VIAL ONE ×2 (19:36)
[2019-01-12] MEDS ORDERED: PROMETHAZINE HCL 25 MG/1 ML VIAL ONE (19:36)
[2019-01-12] MEDS ORDERED: OXYTOCIN 20 UNITS in 0.9% NS 20 UNIT/1,000 ML INFUS.BAG IV ONE (19:54)
[2019-01-12] MEDS ORDERED: LIDOCAINE HCL 1% PRESERVATIVE FREE - 30ML VIAL ONE (20:11)
[2019-01-12] MEDS ORDERED: METHYLERGONOVINE MALEATE 0.2 MG/1 ML AMP IM PRN (20:29)
[2019-01-12] MEDS ORDERED: BISACODYL 10 MG SUPP.RECT RC PRN (20:29)
[2019-01-12] MEDS ORDERED: BENZOCAINE 20% 57 GM BOTTLE TP PRN (20:29)
[2019-01-12] MEDS ORDERED: WITCH HAZEL 50% (TUCKS) 40 PAD/JAR PAD TP PRN (20:29)
[2019-01-12] MEDS ORDERED: BENZOCAINE 28 GM HEMORRHOIDAL OINTMENT TP PRN (20:29)
[2019-01-12] MEDS ORDERED: OXYTOCIN 20 UNITS in 0.9% NS 20 UNIT/1,000 ML INFUS.BAG IV SCH (20:30)
--- NOTE | 2019-01-12 20:32 | PN ---
Delivery - Delivery Vaginal Delivery: Spontaneous Episiotomy/Laceration: None EBL (cc): 300 Delivery, Single - Feeding Plan Initial Plan: Elected not to breastfeed exclusively throughout hospitalization Remarks - Remarks Remarks: Normal spontaneous vaginal delivery of a live infant over intact perineum. Nose / Oropharynx suctioned @ perineum. Cord clamped and cut. Baby handed to nurse. Placenta expelled spontaneously intact. Mother in stable condition
[2019-01-13] MEDS: ACETAMINOPHEN 325 MG TABLET (FP) PO PRN ×3 (00:10→21:28)
[2019-01-13] MEDS: IBUPROFEN 600 MG TABLET (FP) PO PRN ×3 (00:11→21:28)
[2019-01-13] MEDS: FERROUS SO4 325 MG TABLET (FP) PO SCH ×3 (00:12→21:28)
[2019-01-13] MEDS: AMPICILLIN - 1 GM in SODIUM CHLORIDE 100 ML IVPB SCH (01:43)
[2019-01-13 05:56] LABS: BASO % 0.2 % (0-2.0); EOS % 0.4 % (0-4.5); HEMATOCRIT 33.1 % (32.4-45.2); HEMOGLOBIN 11.1 GM/dL (10.7-15.3); LYMPH % 19.1 % (8-40); MCH 29.6 pg (25.7-33.7); MCHC 33.6 g/dl (32.0-36.0); MEAN CELL VOLUME 88.1 fl (80-96); MEAN PLT VOLUME 9.4 fl (7.5-11.1); MONO % 8.2 % (3.8-10.2); NEUT % 72.1 % (42.8-82.8); PLATELET COUNT 160 K/MM3 (134-434); RBC 3.76 M/mm3 (3.60-5.2); RDW 15.9 % (11.6-15.6); WHITE BLOOD COUNT 14.4 K/mm3 (4.0-10.0)
[2019-01-13] MEDS: PRENATAL VITAMINS W/ FOLIC ACID TABLET (FP) PO SCH (09:46)
[2019-01-13 11:14] LABS: POC NITRAZINE POS
--- NOTE | 2019-01-13 20:14 | PN ---
Post Note - Post Date of Delivery: 01/12/19 Post Day: 1 Vital Signs: Vital Signs - 24 hr 01/12/19 01/12/19 01/12/19 21:00 21:15 21:30 Temperature 98.7 F Pulse Rate 100 H 100 H 98 H Respiratory 18 20 18 Rate Blood Pressure 109/66 116/68 105/63 01/12/19 01/12/19 01/13/19 21:45 23:30 01:45 Temperature 98.2 F 98.4 F Pulse Rate 98 H 93 H 98 H Respiratory 20 20 20 Rate Blood Pressure 98/66 111/74 108/54 L 01/13/19 01/13/19 06:00 09:28 Temperature 98.2 F 98.1 F Pulse Rate 88 95 H Respiratory 20 18 Rate Blood Pressure 97/48 L 93/59 L Labs: Laboratory Results - last 24 hr 01/12/19 01/13/19 09:00 05:35 WBC 14.4 H RBC 3.76 Hgb 11.1 Hct 33.1 MCV 88.1 MCH 29.6 MCHC 33.6 RDW 15.9 H Plt Count 160 MPV 9.4 Absolute Neuts (auto) 10.4 H Neutrophils % 72.1 Lymphocytes % 19.1 Monocytes % 8.2 Eosinophils % 0.4 Basophils % 0.2 Nucleated RBC % 0 POC Vag Fld Nitrazine Pos - Subjective Subjective: No Complaints - Objective Afebrile: Yes Breast: Not engorged Abdomen: Soft, Non-tender Uterus: Fundus firm Vagina: Scant lochia Extremities: Non-tender - Assessment/Plan (1) Vaginal delivery Assessment: S/P Normal Plan: Routine Care
[2019-01-13] MEDS ORDERED: SENNOSIDES/DOCUSATE COMBO (SENNA PLUS) TABLET (UD) PO PRN (22:00)
[2019-01-14 09:06] VITALS: BP 113/62; PULSE 96; TEMP 97.9
[2019-01-14] MEDS: PRENATAL VITAMINS W/ FOLIC ACID TABLET (FP) PO SCH (09:31)
[2019-01-14] MEDS: FERROUS SO4 325 MG TABLET (FP) PO SCH (09:31)
--- NOTE | 2019-01-14 10:10 | DS ---
Physical Exam-[employer] Vital Signs: Vital Signs Temperature 97.9 F 01/14/19 09:00 Pulse Rate 96 H 01/14/19 09:00 Respiratory Rate 18 01/14/19 09:00 Blood Pressure 113/62 01/14/19 09:00 O2 Sat by Pulse Oximetry (%) Constitutional: No: No Distress Eyes: Yes: Conjunctiva Clear HENT: Yes: Atraumatic Neck: Yes: Supple Cardiovascular: Yes: Regular Rate and Rhythm Respiratory: Yes: Regular Gastrointestinal: Yes: Normal Bowel Sounds External Genitalia: Yes: Normal Vaginal Exam: Yes: Normal Cervix: Yes: Normal Uterus: Yes: Firm ....Post : Yes: Uterus firm, Moderate lochia serosa Extremities: Yes: WNL Neurological: Yes: Alert, Oriented ...Motor Strength: WNL Psychiatric: Yes: Alert, Oriented Labs: CBC, BMP 01/13/19 05:35 01/12/19 09:19 Delivery - Delivery Vaginal Delivery: Spontaneous Type of Anesthesia: None Episiotomy/Laceration: None EBL (cc): 300 Delivery, Single - Stages of Labor Date 1st Stage Initiatied: 01/12/19 Time 1st Stage Initiated: 09:00 Date 2nd Stage Initiated: 01/12/19 Time 2nd Stage Initiated: 20:15 Date of Delivery: 01/12/19 Time of Delivery: 20:18 Time Placenta Delivered: 20:20 - Condition of Infant 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[employer] 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 Present: No Infant Gender: Male Weight: 6 lb 7 oz Position: Right, OA Total Hours ROM (Hrs/Mins): 27 HOURS/ 18 MINUTES - 1 Minute Total Score: 9 5 Minutes Total Score: 9 - [place] Feeding Plan Initial Plan: Elected not to breastfeed exclusively throughout hospitalization Discharge Summary Problems reviewed: Yes Reason For Visit: LABOR ADMIT Current Active Problems 39 weeks gestation of (Acute) Spontaneous rupture of amniotic membranes (Acute) Procedures: Principal: Normal vaginal delivery Hospital Course: Routine care Health Concerns: None Plan of Treatment: Analgesia as needed F/U with MD in 6 weeks Goals: Resume normal activities in 6 weeks Condition: Good - Instructions Diet, Activity, Other Instructions: Physical activity Resume your normal everyday activity as tolerated no heavy lifting or exercise until seen by your surgeon. You may walk unlimited yamilex of and climb stairs. You may resume driving the car when you feel safe and comfortable behind the wheel. No sexual activity as instructed. Wound care If you have a bandage, leave it on, and keep dry for 48-72 hours. After that time discard the outer bandage. If they are tapes on the skin under the out of bandage leave them in place. They will peel off in the next 7 to 10 days. Do Not Peel them off. You may shower the day after surgery. If there are tapes present on the skin, you may shower over them. Diet There are no dietary restrictions. Eat healthy, high-fiber foods. Drink 6 to 8 glasses of liquid each day. This will assist in keeping your bowels are regular. Pain management You may take Tylenol or acetaminophen or Ibuprofen (for example, Motrin, Advil etc.) from my pain prescription medication is ordered should be taken as prescribed for moderate to severe pain. Call MD for any of the following: Severe pain not relieved by medication Fever of 101 or higher Excessive bleeding or drainage on dressing Inability to urinate Referrals: Yesenia Ahumaad MD [Staff Physician] - Disposition: HOME - Home Medications Comprehensive Discharge Medication List: Ambulatory Orders Pnv No.95/Ferrous Fum/Folic AC [ Formula] 1 each PO DAILY 01/12/19 Ibuprofen [Motrin -] 600 mg PO QID #28 tablet 01/13/19
== END 2019-01-14 12:25 | disposition home or self-care (01) | DRG 560 ==
LOC: JLDR 08:45 → J3W 23:26
PROVIDERS: ADMIT Obstetrics & Gynecology; ATTEND Obstetrics & Gynecology
PROC: 10E0XZZ Delivery of Products of Conception, External Approach (ICD-10-PCS; principal; 2019-01-12)
DX: O80 Encounter for full-term uncomplicated delivery (principal); Z3A.39 39 weeks gestation of pregnancy; Z37.0 Single live birth
CPT/HCPCS: 36415; 59409; 80048; 83986-QW; 85025; 85610; 85730; 86593; 86850; 86900; 86901; 87389

== ENCOUNTER 2020-06-15 16:15 | Emergency (ER) | payer OTHER ==
[2020-06-15] MEDS ORDERED: SODIUM CHLORIDE 1,000 ML IV STA (17:23)
[2020-06-15] MEDS ORDERED: morphine CARPU-JECT 4 MG/1 ML DISP.SYRIN IVPUSH ONE (17:23)
[2020-06-15] MEDS ORDERED: ONDANSETRON 4 MG/2 ML VIAL IVPUSH ONE (17:23)
[2020-06-15 17:35] VITALS: BMI 26.5
[2020-06-15] MEDS ORDERED: morphine SULFATE 4 MG/ML VIAL ONE (18:28)
[2020-06-15] MEDS ORDERED: ONDANSETRON 4 MG/2 ML VIAL ONE (18:28)
[2020-06-15 19:01] LABS: BASO % 0.4 % (0-2.0); EOS % 0.1 % (0-4.5); HEMATOCRIT 40.3 % (32.4-45.2); HEMOGLOBIN 13.2 GM/dL (10.7-15.3); LYMPH % 20.8 % (8-40); MCH 28.7 pg (25.7-33.7); MCHC 32.7 g/dl (32.0-36.0); MEAN CELL VOLUME 87.8 fl (80-96); MEAN PLT VOLUME 10.2 fl (7.5-11.1); MONO % 10.3 % (3.8-10.2); NEUT % 68.4 % (42.8-82.8); PLATELET COUNT 202 K/MM3 (134-434); RDW 14.7 % (11.6-15.6); WHITE BLOOD COUNT 15.8 K/mm3 (4.0-10.0)
[2020-06-15 19:20] LABS: CALCIUM 9.4 mg/dL (8.5-10.1)
[2020-06-15 19:21] LABS: ALBUMIN 3.7 g/dl (3.4-5.0); BLOOD UREA NITROGEN 7.7 mg/dL (7-18)
[2020-06-15 19:24] LABS: CREATININE 0.6 mg/dL (0.55-1.3)
[2020-06-15 19:25] LABS: BILIRUBIN,TOTAL 0.4 mg/dL (0.2-1); TOT PROT 7.8 g/dl (6.4-8.2)
[2020-06-15 20:16] LABS: EPI CELLS 9 /uL (0-25.1); HYALINE CASTS 1 /uL (0-3.1); URINE APPEARANCE CLEAR; URINE BACTERIA 273 /uL (0-1359); URINE BILIRUBIN NEGATIVE (NEGATIVE); URINE COLOR YELLOW; URINE GLUCOSE (UA) NEGATIVE (NEGATIVE); URINE KETONE 1+ (NEGATIVE); URINE LEUK ESTERASE TRACE (NEGATIVE); URINE NITRITE NEGATIVE (NEGATIVE); URINE PROTEIN NEGATIVE (NEGATIVE); URINE RBC 15 /uL (0-23.9); URINE UROBILINOGEN 0.2 mg/dL (0.2-1.0); URINE WBC 35 /uL (0-25.8)
[2020-06-15 20:46] LABS: HCG,QUALITATIVE URINE Negative
[2020-06-15] MEDS ORDERED: CEFTRIAXONE 1,000 MG in DEXTROSE 5%-WATER - 50 ML IVPB ONE (22:22)
[2020-06-15] MEDS ORDERED: CEFTRIAXONE 1 GM/50 ML BAG ONE (22:25)
[2020-06-15 22:43] VITALS: BP 116/74; PULSE 96; TEMP 98
== END 2020-06-15 22:43 | disposition home or self-care (01) ==
LOC: JER 16:15
PROC: 3E03329 Introduction of Other Anti-infective into Peripheral Vein, Percutaneous Approach (ICD-10-PCS; principal; 2020-06-15)
PROC: 3E033NZ Introduction of Analgesics, Hypnotics, Sedatives into Peripheral Vein, Percutaneous Approach (ICD-10-PCS; 2020-06-15)
PROC: 3E033GC Introduction of Other Therapeutic Substance into Peripheral Vein, Percutaneous Approach (ICD-10-PCS; 2020-06-15)
PROC: 3E0337Z Introduction of Electrolytic and Water Balance Substance into Peripheral Vein, Percutaneous Approach (ICD-10-PCS; 2020-06-15)
DX: N12 Tubulo-interstitial nephritis, not specified as acute or chronic (principal)
CPT/HCPCS: 36415; 74177-TC; 80053; 81003; 83690; 84703; 85025; 87086; 99285-25; Q9967

== ENCOUNTER 2023-09-04 01:54 | Emergency (ER) | payer OTHER ==
[2023-09-04 02:03] VITALS: BP 143/93; PULSE 80; RESP 16; TEMP 98.2; BMI 29.2
[2023-09-04] MEDS ORDERED: ACETAMINOPHEN INJECTION 100 ML IVPB ONE (02:10)
[2023-09-04] MEDS ORDERED: FAMOTIDINE 20 MG/50 ML IVPB 20 MG/50 ML MG IVPB ONE (02:10)
[2023-09-04] MEDS: SODIUM CHLORIDE 1,000 ML IV STA (02:15)
[2023-09-04] MEDS: ACETAMINOPHEN 1000 MG/100 ML BAG IVPB ONE (02:15)
[2023-09-04] MEDS ORDERED: ONDANSETRON 4 MG/2 ML VIAL ONE (02:21)
[2023-09-04] MEDS: FAMOTIDINE 20 MG/50 ML IVPB 20 MG/50 ML MG IVPB ONE (02:28)
[2023-09-04] MEDS: ONDANSETRON 4 MG/2 ML VIAL IVPUSH ONE (02:28)
[2023-09-04] MEDS ORDERED: KETOROLAC TROMETHAMINE 30 MG/1 ML VIAL ONE (02:45)
[2023-09-04] MEDS: KETOROLAC TROMETHAMINE 30 MG/1 ML VIAL IVPUSH ONE (02:48)
[2023-09-04 02:50] LABS: BASO % 0.2 % (0-2.0); EOS % 1.9 % (0-4.5); HEMATOCRIT 40.6 % (32.4-45.2); HEMOGLOBIN 13.5 GM/dL (10.7-15.3); LYMPH % 31.8 % (8-40); MCH 28.9 pg (25.7-33.7); MCHC 33.3 g/dl (32.0-36.0); MEAN CELL VOLUME 86.8 fl (80-96); MEAN PLT VOLUME 9.6 fl (7.5-11.1); MONO % 6.3 % (3.8-10.2); NEUT % 59.8 % (42.8-82.8); PLATELET COUNT 224 10^3/uL (134-434); RBC 4.67 M/mm3 (3.60-5.2); RDW 14.5 % (11.6-15.6); WHITE BLOOD COUNT 13.4 K/mm3 (4.0-10.0)
[2023-09-04 03:11] LABS: POTASSIUM 3.9 mmol/L (3.5-5.1)
[2023-09-04 03:13] LABS: CALCIUM 9.7 mg/dL (8.5-10.1)
[2023-09-04 03:15] LABS: ALBUMIN 4.2 g/dl (3.4-5.0); BLOOD UREA NITROGEN 12.8 mg/dL (7-18)
[2023-09-04 03:17] LABS: CREATININE 0.7 mg/dL (0.55-1.3)
[2023-09-04 03:19] LABS: BILIRUBIN,TOTAL 0.3 mg/dL (0.2-1); TOT PROT 8.2 g/dl (6.4-8.2)
[2023-09-04] MEDS ORDERED: PIPERACILLIN/TAZOBACTAM 3.375 GM VIAL IVPB ONE (03:37)
[2023-09-04] MEDS: PIPERACILLIN/TAZOB 3.375 GM 3.375 GM in DEXTROSE 5%-WATER - 50 ML IVPB ONE (03:44)
== END 2023-09-04 04:32 | disposition home or self-care (01) ==
LOC: FER 01:54
PROC: 3E033GC Introduction of Other Therapeutic Substance into Peripheral Vein, Percutaneous Approach (ICD-10-PCS; principal; 2023-09-04)
PROC: 3E03329 Introduction of Other Anti-infective into Peripheral Vein, Percutaneous Approach (ICD-10-PCS; 2023-09-04)
PROC: 3E033NZ Introduction of Analgesics, Hypnotics, Sedatives into Peripheral Vein, Percutaneous Approach (ICD-10-PCS; 2023-09-04)
PROC: 3E0333Z Introduction of Anti-inflammatory into Peripheral Vein, Percutaneous Approach (ICD-10-PCS; 2023-09-04)
PROC: 3E033GC Introduction of Other Therapeutic Substance into Peripheral Vein, Percutaneous Approach (ICD-10-PCS; 2023-09-04)
DX: R10.11 Right upper quadrant pain (principal); R10.13 Epigastric pain; R11.2 Nausea with vomiting, unspecified; K80.50 Calculus of bile duct without cholangitis or cholecystitis without obstruction
CPT/HCPCS: 36415; 76705-TC; 80053; 81025; 83690; 85025; 96365; 96367; 96375; 99284-25; J0131

== ENCOUNTER 2023-09-05 16:20 | Day surgery (SDC) | payer OTHER ==
[2023-09-05 16:29] VITALS: BMI 29.2
[2023-09-05] MEDS ORDERED: ACETAMINOPHEN INJECTION 100 ML IVPB ONE (17:55)
[2023-09-05] MEDS ORDERED: FAMOTIDINE 20 MG/50 ML IVPB 20 MG/50 ML MG IVPB ONE (17:56)
[2023-09-05] MEDS ORDERED: MAG HYDROX/AL HYDROX/SIMETH 30 ML UNIT-DOSE CUP ONE (17:56)
[2023-09-05] MEDS ORDERED: ONDANSETRON 4 MG/2 ML VIAL ONE ×2 (17:56→21:30)
[2023-09-05] MEDS: ONDANSETRON 4 MG/2 ML VIAL IVPUSH ONE ×2 (18:10→21:34)
[2023-09-05] MEDS: ACETAMINOPHEN 1000 MG/100 ML BAG IVPB ONE (18:10)
[2023-09-05] MEDS: SODIUM CHLORIDE 0.9% 500 ML INFUS.BAG IV ONE (18:10)
[2023-09-05] MEDS: FAMOTIDINE 20 MG/50 ML IVPB 20 MG/50 ML MG IVPB ONE (18:10)
[2023-09-05] MEDS: MAG HYDROX/AL HYDROX/SIMETH 30 ML UNIT-DOSE CUP PO ONE (18:15)
[2023-09-05 18:47] LABS: BASO % 0.2 % (0-2.0); EOS % 2.8 % (0-4.5); HEMATOCRIT 39.1 % (32.4-45.2); HEMOGLOBIN 13.1 GM/dL (10.7-15.3); LYMPH % 23.6 % (8-40); MCH 28.7 pg (25.7-33.7); MCHC 33.5 g/dl (32.0-36.0); MEAN CELL VOLUME 85.6 fl (80-96); MEAN PLT VOLUME 9.4 fl (7.5-11.1); MONO % 6.2 % (3.8-10.2); NEUT % 67.2 % (42.8-82.8); PLATELET COUNT 220 10^3/uL (134-434); RBC 4.57 M/mm3 (3.60-5.2); RDW 14.6 % (11.6-15.6); WHITE BLOOD COUNT 13.1 K/mm3 (4.0-10.0)
[2023-09-05 18:49] LABS: INR 1.09 (0.83-1.09); PROTHROMBIN TIME (PATIENT) 12.3 SEC (9.7-13.0)
[2023-09-05 18:58] LABS: POTASSIUM 4.3 mmol/L (3.5-5.1)
[2023-09-05 19:00] LABS: ALBUMIN 3.8 g/dl (3.4-5.0); CALCIUM 9.5 mg/dL (8.5-10.1)
[2023-09-05 19:01] LABS: BLOOD UREA NITROGEN 7.8 mg/dL (7-18)
[2023-09-05 19:03] LABS: CREATININE 0.6 mg/dL (0.55-1.3)
[2023-09-05 19:05] LABS: BILIRUBIN,TOTAL 0.4 mg/dL (0.2-1); TOT PROT 7.4 g/dl (6.4-8.2)
[2023-09-05 19:30] LABS: ACTIVATED PTT 33.9 SECONDS (25.2-36.5)
[2023-09-05] MEDS ORDERED: KETOROLAC TROMETHAMINE 15 MG/ML VIAL ONE (21:11)
[2023-09-05] MEDS: KETOROLAC TROMETHAMINE 15 MG/ML VIAL IVPUSH ONE (21:28)
[2023-09-05] MEDS: LACTATED RINGERS SOLUTION 1000 ML INFUS.BAG IV ONE (21:28)
[2023-09-05] MEDS ORDERED: PIPERACILLIN/TAZOB 4.5 GM 4.5 GM/100 ML BAG IVPB ONE (22:01)
[2023-09-05] MEDS: PIPERACILLIN/TAZOB 4.5 GM 4.5 GM in DEXTROSE 5%-WATER 100 ML IVPB ONE (22:13)
[2023-09-05] MEDS ORDERED: MORPHINE SULFATE 2 MG/ML SYRINGE IVPUSH PRN (22:32)
[2023-09-05] MEDS: DEXTROSE 5%-NORMAL SALINE 1,000 ML IV SCH (23:01)
[2023-09-06] MEDS: morphine SULFATE 4 MG/ML VIAL IVPUSH PRN (00:50)
[2023-09-06] MEDS: PIPERACILLIN/TAZOB 3.375 GM 3.375 GM in DEXTROSE 5%-WATER - 50 ML IVPB SCH ×2 (02:35→21:19)
[2023-09-06] MEDS ORDERED: PIPERACILLIN/TAZOB 3.375 GM 3.375 GM in DEXTROSE 5%-WATER - 50 ML IVPB SCH (03:00)
[2023-09-06] MEDS: ACETAMINOPHEN 1000 MG/100 ML BAG IVPB PRN (05:04)
[2023-09-06] MEDS: ONDANSETRON 4 MG/2 ML VIAL IVPUSH PRN ×2 (08:36→21:20)
[2023-09-06 08:56] LABS: BASO % 0.1 % (0-2.0); EOS % 1.8 % (0-4.5); HEMATOCRIT 36.9 % (32.4-45.2); HEMOGLOBIN 12.3 GM/dL (10.7-15.3); LYMPH % 18.4 % (8-40); MCH 28.8 pg (25.7-33.7); MCHC 33.4 g/dl (32.0-36.0); MEAN CELL VOLUME 86.2 fl (80-96); MEAN PLT VOLUME 9.5 fl (7.5-11.1); MONO % 5.4 % (3.8-10.2); NEUT % 74.3 % (42.8-82.8); PLATELET COUNT 204 10^3/uL (134-434); RBC 4.28 M/mm3 (3.60-5.2); RDW 14.6 % (11.6-15.6); WHITE BLOOD COUNT 15.5 K/mm3 (4.0-10.0)
[2023-09-06 09:18] LABS: POTASSIUM 3.8 mmol/L (3.5-5.1)
[2023-09-06] MEDS: KETOROLAC TROMETHAMINE 15 MG/ML VIAL IVPUSH ONE (09:19)
[2023-09-06 09:20] LABS: CALCIUM 8.6 mg/dL (8.5-10.1)
[2023-09-06 09:24] LABS: CREATININE 0.6 mg/dL (0.55-1.3)
[2023-09-06] MEDS: DEXTROSE 5%-NORMAL SALINE 1,000 ML IV SCH ×2 (13:15→18:31)
[2023-09-06] MEDS ORDERED: ONDANSETRON 4 MG/2 ML VIAL IVPUSH PRN ×2 (13:44→16:29)
[2023-09-06] MEDS ORDERED: PROMETHAZINE HCL 25 MG/1 ML VIAL IVPB PRN ×2 (13:44→16:29)
[2023-09-06] MEDS ORDERED: HEPARIN NA (PORCINE) 5,000 UNITS/ML 1ML VIAL ONE (14:18)
[2023-09-06] MEDS ORDERED: BUPIVACAINE HCL/PF 0.25% (2.5MG/ML) 10 ML VIAL ONE (14:18)
[2023-09-06] MEDS ORDERED: cefOXitin SODIUM 2 GM VIAL (RESTRICTED TO ID) IVPB ONE (14:19)
[2023-09-06] MEDS ORDERED: PROPOFOL 20 ML ONE (14:26)
[2023-09-06] MEDS ORDERED: MIDAZOLAM HCL 2 MG/2 ML SINGLE DOSE VIAL ONE (14:26)
[2023-09-06] MEDS ORDERED: ROCURONIUM BROMIDE 50 MG/5 ML SYRINGE ONE (14:26)
[2023-09-06] MEDS ORDERED: SUCCINYLCHOLINE CHLORIDE 200 MG/10 ML SYRINGE ONE (14:50)
[2023-09-06] MEDS ORDERED: PIPERACILLIN/TAZOBACTAM 3.375 GM VIAL IVPB ONE (14:55)
[2023-09-06] MEDS: LACTATED RINGERS SOLUTION 1,000 ML IV SCH ×2 (14:56→16:30)
[2023-09-06] MEDS: ALBUTEROL SULFATE 0.021% (0.63 MG/3 ML) VIAL.NEB NEB ONE ×2 (14:57→17:28)
[2023-09-06] MEDS: IPRATROPIUM BR 0.02% 0.5 MG/2.5 ML VIAL.NEB. NEB ONE ×2 (14:57→17:27)
[2023-09-06] MEDS: PIPERACILLIN/TAZOBACTAM 3.375 GM VIAL IVPB ONE (14:58)
[2023-09-06] MEDS ORDERED: LIDOCAINE HCL/PF 2% SDV 5ML VIAL ONE (15:00)
[2023-09-06] MEDS ORDERED: DEXAMETHASONE SOD PHOSPHATE 4 MG/1 ML VIAL ONE (15:00)
[2023-09-06] MEDS ORDERED: ONDANSETRON 4 MG/2 ML VIAL ONE (15:00)
[2023-09-06] MEDS: BUPIVACAINE HCL/PF 0.25% (2.5MG/ML) 10 ML VIAL IJ ONE (15:16)
[2023-09-06] MEDS ORDERED: ACETAMINOPHEN INJECTION 100 ML IVPB ONE (15:18)
[2023-09-06] MEDS ORDERED: NEOSTIGMINE METHYLSULFATE 0.5 MG/1 ML - 10 ML MDV ONE (15:47)
[2023-09-06] MEDS ORDERED: GLYCOPYRROLATE 0.2 MG/1 ML VIAL ONE (15:48)
[2023-09-06] MEDS ORDERED: oxyCODONE HCL 5 MG TABLET PO PRN (16:29)
[2023-09-06] MEDS: ACETAMINOPHEN 500 MG TABLET (FP) PO SCH (19:09)
[2023-09-06] MEDS: oxyCODONE HCL 5 MG TABLET PO PRN (21:41)
[2023-09-07 08:25] LABS: BASO % 0.2 % (0-2.0); HEMATOCRIT 36.9 % (32.4-45.2); LYMPH % 21.4 % (8-40); MCH 28.4 pg (25.7-33.7); MCHC 32.6 g/dl (32.0-36.0); MEAN CELL VOLUME 87.1 fl (80-96); MEAN PLT VOLUME 9.7 fl (7.5-11.1); MONO % 7.1 % (3.8-10.2); NEUT % 71.3 % (42.8-82.8); PLATELET COUNT 213 10^3/uL (134-434); RBC 4.24 M/mm3 (3.60-5.2); RDW 14.3 % (11.6-15.6); WHITE BLOOD COUNT 11.7 K/mm3 (4.0-10.0)
[2023-09-07 08:27] LABS: POTASSIUM 3.9 mmol/L (3.5-5.1)
[2023-09-07 08:36] LABS: CALCIUM 8.3 mg/dL (8.5-10.1)
[2023-09-07 08:37] LABS: BLOOD UREA NITROGEN 4.8 mg/dL (7-18)
[2023-09-07 08:40] LABS: CREATININE 0.6 mg/dL (0.55-1.3)
[2023-09-07 08:41] LABS: BILIRUBIN,TOTAL 0.4 mg/dL (0.2-1)
[2023-09-07 08:42] LABS: TOT PROT 6.4 g/dl (6.4-8.2)
[2023-09-07 09:06] VITALS: BP 115/83; PULSE 70; RESP 16; TEMP 98.8
== END 2023-09-07 13:13 | disposition home or self-care (01) ==
LOC: JER 16:20 → UNDOADMOB 21:34 → JERBED 21:34 → J6S 09-06 00:25 → JASUSAT 09-07 09:15 → J6S 09-07 09:25 → JASUSAT 09-07 13:13
PROVIDERS: ATTEND Internal Medicine
PROC: 3E033GC Introduction of Other Therapeutic Substance into Peripheral Vein, Percutaneous Approach (ICD-10-PCS; principal; 2023-09-07)
PROC: 3E03329 Introduction of Other Anti-infective into Peripheral Vein, Percutaneous Approach (ICD-10-PCS; 2023-09-07)
PROC: 3E033NZ Introduction of Analgesics, Hypnotics, Sedatives into Peripheral Vein, Percutaneous Approach (ICD-10-PCS; 2023-09-07)
PROC: 3E0333Z Introduction of Anti-inflammatory into Peripheral Vein, Percutaneous Approach (ICD-10-PCS; 2023-09-07)
PROC: 3E033GC Introduction of Other Therapeutic Substance into Peripheral Vein, Percutaneous Approach (ICD-10-PCS; 2023-09-07)
PROC: 3E033GC Introduction of Other Therapeutic Substance into Peripheral Vein, Percutaneous Approach (ICD-10-PCS; 2023-09-07)
PROC: 3E0333Z Introduction of Anti-inflammatory into Peripheral Vein, Percutaneous Approach (ICD-10-PCS; 2023-09-07)
DX: R10.11 Right upper quadrant pain (principal); R10.13 Epigastric pain; R11.2 Nausea with vomiting, unspecified; K80.51 Calculus of bile duct without cholangitis or cholecystitis with obstruction
CPT/HCPCS: 36415; 76705-TC; 80048; 80053; 83690; 84703; 85025; 85610; 85730; 86850; 86900; 86901; 93005; 93010; 94760; 99285-25; J0131; J1644

== ENCOUNTER 2023-09-25 11:55 | Emergency (ER) | payer OTHER ==
[2023-09-25 12:23] LABS: HCG,QUALITATIVE URINE Negative
[2023-09-25 12:32] VITALS: BP 123/83; PULSE 96; RESP 18; TEMP 98.8; BMI 29.9
[2023-09-25] MEDS ORDERED: ACETAMINOPHEN INJECTION 100 ML IVPB ONE (12:58)
[2023-09-25] MEDS: ACETAMINOPHEN 1000 MG/100 ML BAG IVPB ONE (13:05)
[2023-09-25 13:30] LABS: HEMATOCRIT 40.3 % (32.4-45.2); MCH 28.9 pg (25.7-33.7); MCHC 32.3 g/dl (32.0-36.0); MEAN CELL VOLUME 89.5 fl (80-96); MEAN PLT VOLUME 9.8 fl (7.5-11.1); PLATELET COUNT 308.4 10^3/uL (134-434); WHITE BLOOD COUNT 10.2 10^3/uL (4.0-10.8)
[2023-09-25 13:39] LABS: ALBUMIN 4.3 g/dl (3.4-5.0); BILIRUBIN,TOTAL 0.3 mg/dl (0.2-1); CALCIUM 9.8 mg/dl (8.5-10.1); CREATININE 0.6 mg/dl (0.6-1.3); POTASSIUM 4.1 mmol/L (3.5-5.1); TOT PROT 7.1 g/dl (6.4-8.2)
[2023-09-25 13:43] LABS: PLATELET ESTIMATE ADEQUATE
[2023-09-25] MEDS: SODIUM CHLORIDE 1,000 ML IV STA (13:44)
== END 2023-09-25 16:15 | disposition home or self-care (01) ==
LOC: FER 11:55
PROC: 3E033NZ Introduction of Analgesics, Hypnotics, Sedatives into Peripheral Vein, Percutaneous Approach (ICD-10-PCS; principal; 2023-09-25)
PROC: 3E0337Z Introduction of Electrolytic and Water Balance Substance into Peripheral Vein, Percutaneous Approach (ICD-10-PCS; 2023-09-25)
DX: G89.18 Other acute postprocedural pain (principal); R10.9 Unspecified abdominal pain
CPT/HCPCS: 36415; 74177-TC; 76705-TC; 80053; 81003; 83690; 84703; 85027; 87086; 87186; 99285-25; J0131; Q9967

== ENCOUNTER 2024-06-29 14:35 | Emergency (ER) | payer OTHER ==
[2024-06-29 15:15] VITALS: BP 122/88; PULSE 92; RESP 18; TEMP 98.6; BMI 28.3
[2024-06-29 15:21] LABS: HCG,QUALITATIVE URINE Positive
[2024-06-29 15:51] LABS: EPITHELIAL CELLS 0-5 /hpf; URINE MUCUS FEW
[2024-06-29] MEDS ORDERED: ONDANSETRON 4 MG/2 ML VIAL ONE (16:35)
[2024-06-29] MEDS ORDERED: ACETAMINOPHEN 325 MG TABLET (FP) ONE (16:35)
[2024-06-29] MEDS: ACETAMINOPHEN 325 MG TABLET (FP) PO ONE (16:41)
[2024-06-29] MEDS: ONDANSETRON 4 MG/2 ML VIAL IVPUSH ONE (16:42)
[2024-06-29 16:56] LABS: ABSOLUTE IMMATURE GRANULOCYTES 0.03 x10^3/uL (0.0-0.031); BASOPHILS # 0.03 x10^3/uL (0.01-0.08); EOSINOPHIL % 0.3 % (0.7-5.8); EOSINOPHILS # 0.04 x10^3/uL (0.04-0.36); HEMOGLOBIN 12.9 g/dL (11.2-15.7); INR 1.04 (0.83-1.09); MCHC 33.1 g/dl (32.2-35.5); MEAN CELL VOLUME 87.8 fl (79.4-94.8); MEAN PLT VOLUME 11.7 fl (9.4-12.3); MONOCYTE # 0.69 x10^3/uL (0.24-0.86); MONOCYTE % 5.8 % (4.7-12.5); PLATELET COUNT 239 x10^3/uL (182-369); PROTHROMBIN TIME (PATIENT) 11.5 SEC (9.7-13.0); RDW 13.5 % (12.1-16.8)
[2024-06-29 16:59] LABS: ACTIVATED PTT 27.2 SECONDS (25.2-36.5)
[2024-06-29 17:07] LABS: ALBUMIN 4.1 g/dl (3.4-5.0); ALK PHOS 82 U/L (45-117); ANION GAP 9 mmol/L (4-13); BILIRUBIN,TOTAL 0.4 mg/dl (0.2-1); CALCIUM 9.5 mg/dl (8.5-10.1); CHLORIDE 103 mmol/L (98-107); CO2 25 mmol/L (21-32); CREATININE 0.5 mg/dl (0.6-1.3); GLUCOSE,RANDOM 72 mg/dl (74-106); POTASSIUM 4.2 mmol/L (3.5-5.1); SGOT/AST 26 U/L (15-37); SGPT/ALT 29 U/L (7-52); SODIUM 137 mmol/L (136-145)
[2024-06-29 18:45] LABS: HCV DIAGNOSTIC IN-HOUSE W/RFLX NON-REACTIVE (NONREACTIVE)
[2024-06-29 18:46] LABS: HIV INTERPRETATION NEGATIVE (NEGATIVE)
== END 2024-06-29 17:41 | disposition home or self-care (01) ==
LOC: FER 14:35
PROC: 3E033GC Introduction of Other Therapeutic Substance into Peripheral Vein, Percutaneous Approach (ICD-10-PCS; principal; 2024-06-29)
DX: O09.521 Supervision of elderly multigravida, first trimester (principal); O20.0 Threatened abortion; Z3A.01 Less than 8 weeks gestation of pregnancy
CPT/HCPCS: 36415; 76817-TC; 80053; 81003; 81015; 84702; 84703; 85025; 85610; 85730; 86803; 86850; 86900; 86901; 87086; 87389; 99285-25